=== PATIENT | female | born 1965 ===

== ENCOUNTER 2023-03-06 19:19 | Emergency (ER) | payer OTHER ==
--- OUTSIDE RECORDS SUMMARY | 2023-03-06 19:21 | XMS REPORT | Continuity of Care Document ---
:1965 Author Organization [facility] t Address [address] [facility] [address] [place] [address] Care Team Providers Name Role Phone DAGMARJANET Magali Primary Care Physician Unavailable Beckie Knox MD Attending Clinician Unknown, Attending Attending Clinician Unavailable BECKIE KNOX Attending Clinician Unavailable UNKNOWN, ATTENDING Attending Clinician Unavailable TINA PAREDES III Attending Clinician Unavailable King BLANCA MD, James C Attending Clinician Doctor Unassigned, [place] Attending Clinician Unavailable Payers Payer Name Policy Type Policy Number Effective Date Expiration Date S ource Problems This patient has no known problems. Allergies, Adverse Reactions, Alerts Allergy Allergy Status Severity Reaction(s) Onset Inactive Treating Comm ents Source Name Type Date Date Clinician NO KNOWN Drug Active Univers ALLERGIE Class ity of S [facility] Social History Social Habit Start Date Stop Date Quantity Comments Source Exposure to 2022-07-03 2022-07-13 Not sure [facility]-CoV-2 00:00:00 10:50:00 [facility] [place] Tobacco use and 2022-07-02 2022-07-02 Smokeless tobacco Un iversity of exposure 00:00:00 00:00:00 non-user [facility] Sex Ass[birth year] At [birth year] Universit y of 00:00:00 00:00:00 [facility] Smoking Status Start Date Stop Date Source Never smoked tobacco [facility] Medications Ordered Filled Start Stop Current Ordering Indication Dosage Frequency Signature Comments Components Source Medication Medication Date Date Medication? Clinician (SIG) Name Name azelastine Yes [id number] 1{spray Use 1 Univers 137 mcg 2-26 } [place] in ity of (0.1 %) 00:00: each [place] nasal spray 00 nostril in [place] dical the Branch morning and 1 [place] in the evening. Use in each nostril as directed fluticasone Yes [id number] 1{spray Use 1 Univers propionate 2-26 } [place] in ity o f 50 00:00: each [place] mcg/actuati 00 nostril in N[place] dical on nasal the Branch spray morning. predniSONE 2022- No [id number] 40mg Take 2 Univers 20 mg 2-26 03-06 tablets by ity of tablet 00:00: 05:59 mouth in [place] 00 :00 the Medical morning Branch for 7 days. cefdinir Yes [id number] 300mg Take 1 Un courtney 300 mg 2-15 capsule by ity of capsule 00:00: mouth [place] 00 every 12 Medical (twelve) Branch hours. Olopatadine Yes [id number] 1[drp] Place 1 Univers 0.2 % 2-15 Drop in ity of ophthalmic 00:00: each eye Jasiel as drops 00 in the Medical morning. Branch cefdinir Yes [id number] 300mg Take 1 Un [place] 300 mg 2-15 capsule by ity of capsule 00:00: mouth [place] 00 every 12 Medical (twelve) Branch hours. Olopatadine Yes [id number] 1[drp] Place 1 Univers 0.2 % 2-15 Drop in ity of ophthalmic 00:00: each eye Jasiel as drops 00 in the Medical morning. Branch Methylpredn 2022- No [id number] 4mg Take 1 Univers isolone 4 2-15 02-21 tablet by ity of mg tablet 00:00: 05:59 mouth [place] 00 :00 every 12 Medical (twelve) Branch hours for 5 days. acetaminoph Yes 1{tbl} Take 1 Tab Univers en-codeine 2-11 by mouth ity o f (TYLENOL 00:00: every 4 [place] #3) 300-30 00 (four) Medical mg tablet hours as Branch needed for Pain unrelieved by non-narcot ic analgesics . naproxen Yes 500mg Take 1 Tab Un [place] (NAPROSYN) 2-11 by mouth ity o f 500 mg 00:00: as needed [place] tablet 00 for Pain Medical (scale Branch 4-6). acetaminoph Yes 1{tbl} Take 1 Tab Univers en-codeine 2-11 by mouth ity o f (TYLENOL 00:00: every 4 [place] #3) 300-30 00 (four) Medical mg tablet hours as Branch needed for Pain unrelieved by non-narcot ic analgesics . naproxen Yes 500mg Take 1 Tab Un [place] (NAPROSYN) 2-11 by mouth ity o f 500 mg 00:00: as needed [place] tablet 00 for Pain Medical (scale Branch 4-6). acetaminoph Yes 1{tbl} Take 1 Tab Univers en-codeine 2-11 by mouth ity o f (TYLENOL 00:00: every 4 [place] #3) 300-30 00 (four) Medical mg tablet hours as Branch needed for Pain unrelieved by non-narcot ic analgesics . naproxen Yes 500mg Take 1 Tab Un [place] (NAPROSYN) 2-11 by mouth ity o f 500 mg 00:00: as needed [place] tablet 00 for Pain Medical (scale Branch 4-6). Vital Signs Vital Name Observation Time Observation Value Comments Source Systolic blood 2022-07-13 18:06:00 115 [facility] Diastolic blood 2022-07-13 18:06:00 77 mm[Hg] [facility] Heart rate 2022-07-13 18:06:00 90 /min [facility] Body temperature 2022-07-13 18:06:00 36.89 Ellie [facility] Respiratory rate 2022-07-13 18:06:00 20 /min [facility] Body height 2022-07-13 18:06:00 157.5 cm [facility] Body weight 2022-07-13 18:06:00 76.068 kg [facility] BMI 2022-07-13 18:06:00 30.67 kg[facility] saturation in 2022-07-13 18:06:00 98 /min University of Arterial blood by [facility] [place] [facility] Pulse oximetry Branch Systolic blood 2022-07-02 23:04:00 122 mm[Hg] Univer sity of pressure [facility] Diastolic blood 2022-07-02 23:04:00 82 mm[Hg] Unive rsity of pressure [facility] Heart rate 2022-07-02 23:04:00 97 /min [facility] Body temperature 2022-07-02 23:04:00 36.94 Ellie [facility] Res[facility] rate 2022-07-02 23:04:00 14 /min [facility] Body weight 2022-07-02 23:04:00 77.111 kg [facility] BMI 2022-07-02 23:04:00 29.18 kg/m2 [facility] Oxygen saturation in 2022-07-02 23:04:00 98 /min University Arterial blood by [facility] [place] [facility] Pulse oximetry [place] Procedures Procedure Date / Time Performed Performing Clinician [facility] e ASSIGNMENT OF BENEFITS 2022-07-02 22:55:16 Doctor Unassigned, No [facility] Encounters Start End Encounter Admission Attending Care Care Encounter Source Date/Time Date/Time Type Type Clinicians Facility Department ID 2022-07-13 2022-07-13 Urgent Beckie Knox [facility] [id number] Univers 12:00:00 12:20:00 Care Unknown, Attending [facility] [id number] [facility] [id number] Jasiel as IVAN?BLEA [id number] [place] dic[address] MEDICAL OFFICE BUILDING 2022-07-13 2022-07-13 Outpatient R LISETTE [facility] [id number] Univers 12:00:00 12:00:00 [facility] 2022-07-12 2022-07-12 Outpatient R UNKNOWN, [facility] [id number] Univers 15:20:00 15:20:00 ATTENDING jameel [facility] [place] 2022-07-03 2022-07-03 Outpatient R UNKNOWN, [facility] [id number] Univers 17:00:00 17:00:00 ATTENDING ity [facility] [place] 2022-07-02 2022-07-02 Outpatient R KING BLANCA, [facility] [id number] Univers 16:40:00 17:23:55 TINA ity [facility] [place] 2022-07-02 2022-07-02 Urgent Tina Paredes [facility] [id number] Univers 16:40:00 17:23:55 Care Unknown, Attending HEALTH [id number] ity of [place] [id number] Jasiel as IVAN?BLEA [id number] [place] dical [address] MEDICAL OFFICE BUILDING 2022-07-02 2022-07-02 Orders Doctor CONSTANCE [id number] Univers 00:00:00 00:00:00 Only Unassigned, EDUARDO [id number] ity of [place] [facility] [id number] Jasiel as [phone] [address] Results Test Description Test Time Test Comments Results Result [facility] e Comments SCR MAMM 2021-04-17 BILATERAL CHAN 12:56:37 CAD DIGITAL Name: , W/AUGMENTATION Livier Clark : 1965 Sex: F - SCR MAMM BILATERAL CHAN CAD DIGITAL W/AUGMENTATIONBILATERAL DIGITAL SCREENING MAMMOGRAM 3D/2D WITH CAD WITH AUGMENTATION: 1CLINICAL: Asymptomatic. Digital breast tomosynthesis was performed in addition to routine CC and MLO views. Current mammographic images were evaluated by knowNormal CAD (computer-aided detection) software. No prior exams were available for comparison. There are scattered fibroglandular tissues in both breasts. There are benign calcifications in both breasts. No suspicious mass, architectural distortion, malignant type calcification, or lymph node abnormality detected. IMPRESSION: BENIGNThere is no mammographic evidence of malignancy. Resume annual screening mammography in one year. Ace Chavez/penrad:04/17/2021 12:56:37 Information Management Officer: Maria Esther Haines MM, [facility] Mammographyletter sent: BIRADS 1-2 Normal Mammogram BI-RADS: 2 Benign
[2023-03-06 20:10] LABS: Absolute Lymphocytes (CBC) 2.2 K/uL (0.7-4.9); Lymphocytes % 35.1 % (15.3-44.8); MPV 8.6 fL (7.6-11.3); Platelets 173 thou/uL (152-406); RBC Red Blood Cell Count 4.15 M/uL (3.86-4.86)
[2023-03-06 20:14] LABS: Urine Bacteria None Seen /HPF (<20); Urine Bilirubin NEGATIVE (Negative); Urine Blood 1+ (Negative); Urine Clarity Clear (Clear); Urine Color Yellow (Yellow); Urine Crystals Unidentified Few /HPF (None Seen); Urine Glucose NEGATIVE (Negative); Urine Mucus 1+ /HPF (None Seen); Urine Protein TRACE (Negative); Urine Urobilinogen 2+ (Normal)
[2023-03-06 20:23] LABS: Barbiturates NEGATIVE (NEGATIVE); Benzodiazepines NEGATIVE (NEGATIVE); Cocaine NEGATIVE (NEGATIVE); METHAMPHETAM NEGATIVE (NEGATIVE); Opiates NEGATIVE (NEGATIVE); Phencyclidine NEGATIVE (NEGATIVE); THC Cannibis POSITIVE (NEGATIVE)
[2023-03-06 20:24] LABS: Protime INR 1.05
[2023-03-06 20:32] LABS: ALT/SGPT 28 U/L (13-56); AST/SGOT 29 U/L (15-37); Albumin 3.5 g/dL (3.4-5.0); Alkaline Phosphatase 101 U/L (45-117); BUN Blood Urea Nitrogen 18 mg/dL (7-18); Bicarbonate 26 mEq/L (21-32); Bilirubin Direct 0.2 mg/dL (0-0.2); Bilirubin Indirect, Calculated 0.5 mg/dL (0.2-0.8); Bilirubin Total 0.7 mg/dL (0.2-1.0); Glomerular Filtration Rate 103 ml/min (=/>90); Glucose Level 115 mg/dL (74-106); Potassium 3.7 mEq/L (3.5-5.1); Protein, Total 7.5 g/dL (6.4-8.2); Sodium Level 140 mEq/L (136-145)
[2023-03-06] MEDS ORDERED: LORAZEPAM 1 MG TABLET ONE (20:38)
[2023-03-06 20:44] LABS: Methadone ND (NEGATIVE)
--- NOTE | 2023-03-06 20:54 | EDPHYS ---
Physician Documentation [facility] Name: Guerita Roman Age: 57 yrs Sex: Female : 1965 Arrival Date: 03/06/2023 Time: 19:19 Bed 17 Private MD: ED Physician Hayder Flores HPI: 03/06 20:50 This 57 yrs old Female presents to ER via Wheelchair with complaints of Psych Problem. rt 20:50 Patient presents to the ED with suicidal ideation. Patient states that she recently rt quit her job, is overwhelmed with it. She states that she is a financial burden on her family, states that she wishes to , states that her roof was not high enough to jump off of. Denies other plans of suicide at this time. Reports anxiety. Denies homicidal ideation, hallucinations. Denies other acute complaints at this time, symptoms are moderate severity, no other aggravating elevating factors.. Historical: - Allergies: 19:22 NKA; mb9 - Home Meds: 19:23 Trintellix oral [Active]; mb9 - PMHx: 19:22 PTSD; Depression; mb9 - PSHx: 19:22 None; mb9 - Immunization history:: Adult Immunizations up to date. - Social history:: Smoking status: Patient denies any tobacco usage or history of. - Family history:: not pertinent. ROS: 20:50 Constitutional: Negative for fever, chills, and weight loss, Eyes: Negative for injury, rt pain, redness, and discharge, Cardiovascular: Negative for chest pain, palpitations, and edema, Respiratory: Negative for shortness of breath, cough, wheezing, and pleuritic chest pain, Abdomen/GI: Negative for abdominal pain, nausea, vomiting, diarrhea, and constipation, MS/Extremity: Negative for injury and deformity, Skin: Negative for injury, rash, and discoloration, Neuro: Negative for headache, weakness, numbness, tingling, and seizure, 20:50 Psych: Positive for anxiety, suicidal ideation, Exam: 20:50 Constitutional: This is a well developed, well nourished patient who is awake, alert, rt and in no acute distress. Head/Face: Normocephalic, atraumatic. Chest/axilla: Normal chest wall appearance and motion. Nontender with no deformity. No lesions are appreciated. Cardiovascular: Regular rate and rhythm with a normal S1 and S2. No gallops, murmurs, or rubs. Normal PMI, no JVD. No pulse deficits. Respiratory: Lungs have equal breath sounds bilaterally, clear to auscultation and percussion. No rales, rhonchi or wheezes noted. No increased work of breathing, no retractions or nasal flaring. Abdomen/GI: Soft, non-tender, with normal bowel sounds. No distension or tympany. No guarding or rebound. No evidence of tenderness throughout. Skin: Warm, dry with normal turgor. Normal color with no rashes, no lesions, and no evidence of cellulitis. MS/ Extremity: Pulses equal, no cyanosis. Neurovascular intact. Full, normal range of motion. Neuro: Awake and alert, GCS 15, oriented to person, place, time, and situation. Cranial nerves II-XII grossly intact. Motor strength 5/5 in all extremities. Sensory grossly intact. Cerebellar exam normal. Normal gait. 20:50 ECG was reviewed by the Attending Physician. 20:50 Psych: Mood anxious, affect congruent, reports suicidal ideation. Vital Signs: 19:20 BP 137 / 93; Pulse 98; Resp 18; Temp 98; Pulse Ox 100% ; Weight 72.12 kg; Height 5 ft. mb9 3 in. ; 23:31 BP 105 / 90; Pulse 69; Resp 16; Temp 97.6; Pulse Ox 100% on R/A; iw 19:20 Body Mass Index 28.17 (72.12 kg, 160.02 cm) mb9 MDM: 19:27 Patient medically screened. rt 20:53 Differential diagnosis: depression, Anxiety, suicidal ideation. Data reviewed: vital rt signs, nurses notes, lab test result(s), EKG. I considered the following discharge prescriptions or medication management in the emergency department Medications were administered in the Emergency Department. See MAR. Test considered but Not performed: CT: No altered mental status, CT scan of the head not indicated. Care significantly affected by the following chronic conditions: Depression. Counseling: I had a detailed discussion with the patient and/or guardian regarding the historical points, exam findings, and any diagnostic results supporting the discharge/admit diagnosis, lab results, the need to transfer to another facility. Response to treatment: the patient's symptoms have markedly improved after treatment. 23:38 ED course: Patient has accepting transfer facility, will transfer to psychiatric ec2 facility. Patient updated regarding plan of care and agreeable.. 03/06 19:42 Order name: Acetaminophen; Complete Time: 20:48 rt 03/06 19:42 Order name: Basic Metabolic Panel; Complete Time: 20:48 rt 03/06 19:42 Order name: CBC with Diff; Complete Time: 20:48 rt 03/06 19:42 Order name: ETOH Level; Complete Time: 20:48 rt 03/06 19:42 Order name: Hepatic Function; Complete Time: 20:48 rt 03/06 19:42 Order name: PT-INR; Complete Time: 20:48 rt 03/06 19:42 Order name: Ptt, Activated; Complete Time: 20:48 rt 03/06 19:42 Order name: Salicylate; Complete Time: 20:48 rt 03/06 19:42 Order name: Urinalysis w/ reflexes; Complete Time: 20:48 rt 03/06 19:42 Order name: Urine Drug Screen; Complete Time: 20:48 rt 03/06 19:42 Order name: EKG; Complete Time: 19:43 rt 03/06 19:42 Order name: EKG - Nurse/Tech; Complete Time: 20:29 rt 03/06 19:42 Order name: IV Saline Lock; Complete Time: 20:03 rt 03/06 19:42 Order name: Labs collected and sent; Complete Time: 20:03 rt 03/06 19:42 Order name: Suicide Screening ([place]); Complete Time: 20:24 rt EC:50 Rate is 73 beats/min. Rhythm is regular, Normal Sinus Rhythm with No ectopy. QRS [place] rt is Normal. VT interval is normal. QRS interval is normal. QT interval is normal. No Q waves. T waves are Normal. No ST changes noted. Interpreted by me. Administered Medications: 20:29 Drug: LORazepam PO 2 mg PO once Route: PO; iw 21:03 Follow up: Response: No adverse reaction; Anxiety decreased iw Disposition Summary: 03/06/23 20:53 Transfer Ordered Notes: Transfer Location: Psych Facility rt Reason: Higher level of care rt Condition: Stable rt Problem: new rt Symptoms: have improved rt Accepting Physician: (03/07/23 01:02) la4 Diagnosis - Suicidal ideations rt Forms: - Medication Reconciliation Form rt - SBAR form rt Signatures: Dispatcher [employer] Eunice Gonzalez RN RN iw Breneman, Sonia Foote RN RN Mohit Garcia MD MD rt Corral, Edwin, MD MD ec2 Lissy Bueno RN RN la4 Corrections: (The following items were deleted from the chart) 19:22 PMHx: PTSD; [facility] mb9 19:22 PMHx: Depressive disorder; [facility] mb9 19:22 PMHx: None; 9 mb9 03/07 01:02 03/06 20:53 DrJerardo [email or web address]
--- NOTE | 2023-03-06 20:54 | ER ---
Nurse's Notes [facility] Name: Guerita Roman Age: 57 yrs Sex: Female : 1965 Arrival Date: 03/06/2023 Time: 19:19 Bed 17 Private MD: Diagnosis: Suicidal ideations Presentation: 03/06 19:20 Chief complaint: Spouse and/or significant other states: "she has been dealing with a mb9 lot of stress at work lately and wasvery upset this morning. At dinner time today, she snapped and started crying, becoming hysterical, and saying that she needs to ". Coronavirus screen: Vaccine status: Patient reports receiving the 2nd dose of the covid vaccine. Ebola Screen: No symptoms or risks identified at this time. Initial Sepsis Screen: Does the patient meet any 2 criteria? No. Patient's initial sepsis screen is negative. Does the patient have a suspected source of infection? No. Patient's initial sepsis screen is negative. Risk Assessment: Do you want to hurt yourself or someone else? Patient reports no desire to harm self or others. Onset of symptoms was March 06, 2023. 19:20 Method Of Arrival: Wheelchair mb9 19:20 Acuity: OLEG 2 mb9 Historical: - Allergies: 19:22 NKA; mb9 - Home Meds: 19:23 Trintellix oral [Active]; mb9 - PMHx: 19:22 PTSD; Depression; mb9 - PSHx: 19:22 None; mb9 - Immunization history:: Adult Immunizations up to date. - Social history:: Smoking status: Patient denies any tobacco usage or history of. - Family history:: not pertinent. Screenin:25 [facility] ED Fall Risk Assessment (Adult) Score/Fall Risk Level 0 - 2 = Low Risk. Abuse iw screen: Denies threats or abuse. Nutritional screening: No deficits noted. Tuberculosis screening: No symptoms or risk factors identified. Assessment: 19:25 General: Appears distressed, Behavior is anxious, crying. Pain: Denies pain. Neuro: iw Level of Consciousness is awake, alert, obeys commands, Oriented to person, place, time, situation, Moves all extremities. Full function. Cardiovascular: Patient's skin is warm and dry. Respiratory: Respiratory effort is even, unlabored, Respiratory pattern is regular, symmetrical. GI: Abdomen is flat, non-distended. Derm: Skin is intact, is healthy with good turgor. Musculoskeletal: Range of motion: intact in all extremities. 21:02 Reassessment: Patient appears in no apparent distress at this time. Patient and/or iw family updated on plan of care and expected duration. Pain level reassessed. family at bedside. 22:24 Reassessment: Rose bailon/ [facility] called to verify pt information. Pt accepted la4 by sales and marketing administrator Aristeo Cr. Will get orders and call back to complete transfer. . 23:08 Reassessment: Patient appears in no apparent distress at this time. pt with eyes iw closed, respirations even and unlabored. 23:31 Reassessment: Patient appears in no apparent distress at this time. iw 03/07 01:00 Reassessment: Patient appears in no apparent distress at this time. Patient and/or la4 family updated on plan of care and expected duration. Pain level reassessed. [facility] ambulance here for pt transportation to [facility]. Patient states feeling better. Vital Signs: 03/06 19:20 BP 137 / 93; Pulse 98; Resp 18; Temp 98; Pulse Ox 100% ; Weight 72.12 kg; Height 5 ft. mb9 3 in. ; 23:31 BP 105 / 90; Pulse 69; Resp 16; Temp 97.6; Pulse Ox 100% on R/A; iw 19:20 Body Mass Index 28.17 (72.12 kg, 160.02 cm) mb9 ED Course: 19:19 Patient arrived in ED. la4 19:22 Triage completed. mb9 19:23 Arm band placed on. mb9 19:24 Mohit Ordoñez MD is Attending Physician. rt 20:02 Initial lab(s) drawn, by me, sent to lab. Urine collected: clean catch specimen, clear. iw Inserted saline lock: 22 gauge in right antecubital area, using aseptic technique. Blood collected. 20:29 Eunice Monroy, ROSEANN is Primary Nurse. iw 21:35 Faxed all [facility] Facilities, awaiting for bed placement. wm 22:30 Pt accepted for transfer to [facility] by Dr. Rob \\T\\ 2235, Admin approval is wm [facility]iste[facility] Cr. 23:00 EMS denied transport due to no available trucks. wm 23:00 [facility]ulance accepted for transport with ETA \\T\\ 2330. wm 23:31 No provider procedures requiring assistance completed. iw 23:37 Attending Physician role handed off by Mohit Ordoñez MD ec2 23:37 Hayder Flores MD is Attending Physician. ec2 23:56 IV discontinued, intact, bleeding controlled, No redness/swelling at site. Pressure iw dressing applied. Administered Medications: 20:29 Drug: LORazepam PO 2 mg PO once Route: PO; iw 21:03 Follow up: Response: No adverse reaction; Anxiety decreased iw Medication: 19:25 VIS not applicable for this client. iw Outcome: 20:53 ER care complete, transfer ordered by . rt 03/07 01:02 Patient left the ED. la4 Signatures: Eunice Monroy, RN RN iw Tri Loza Cynthia, Sonia Foote RN RN mb9 Mohit Ordoñez MD MD rt Hayder Flores MD MD ec2 Lissy Bueno RN RN la4 Corrections: (The following items were deleted from the chart) 03/06 19:23 19:22 PMHx: PTSD; mb9 mb9 19:23 19:22 PMHx: Depressive disorder; mb9 mb9 19:23 19:22 PMHx: None; mb9 mb9
[2023-03-07 01:11] VITALS: O2SAT 100
[2023-03-07 01:17] VITALS: BP 105/90; TEMP 97.6
--- NOTE | 2023-03-08 13:52 | EKG ---
Test Date: 2023-03-06 Test Time: 20:26:41 Housekeeper/Laundry Assistant: ANKITA MEASUREMENT RESULTS: Intervals: Rate: 73 DC: 128 QRSD: 102 QT: 406 QTc: 447 [place]: P: 58 DC: 128 QRS: 17 T: 22 INTERPRETIVE STATEMENTS: Normal sinus rhythm Nonspecific ST abnormality Abnormal ECG Compared to ECG 05/19/2016 08:29:23 ST (T wave) deviation now present Electronically Signed On 03-08-23 13:50:24 CDT by Walter Metz
== END 2023-03-07 01:02 ==
LOC: ER 19:19
DX: R45.851 Suicidal ideations (principal); F32.A Depression, unspecified
CPT/HCPCS: 36415; 80048; 80076; 80143; 80179; 80307; 81001; 82077; 85025; 85610; 85730; 93005; 99284